=== PATIENT | female | born 1970 | race Caucasian/White ===

== ENCOUNTER 2016-11-30 07:47 | Day surgery (SDC) | payer OTHER, BC ==
[2016-11-28 14:26] VITALS: BMI 18.6
[2016-11-30] MEDS ORDERED: ceFAZolin IV 2 gm in Dextrose 50 ML IVPB ONE (08:27)
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
[2016-11-30] MEDS ORDERED: Bacitracin 50,000 UNIT in Sodium Chloride 0.9% Irrig 1,000 ML IR SCH (08:45)
[2016-11-30 09:02] VITALS: O2SAT 100
[2016-11-30] MEDS ORDERED: Propofol 10 mg/ml Inj (20 ML) ONE (09:14)
[2016-11-30] MEDS ORDERED: Midazolam 2 MG/2 ML VIAL ONE (09:14)
[2016-11-30] MEDS ORDERED: Lactated Ringer's 1,000 ML IV ONE ×2 (09:15→13:00)
[2016-11-30] MEDS ORDERED: Rocuronium 10 mg/ml (5 ml) ONE ×2 (09:15→11:36)
[2016-11-30] MEDS ORDERED: Bupivacaine-Epi 0.5%-1:200,000 PF Inj ONE (10:25)
[2016-11-30] MEDS ORDERED: Neostigmine Methylsulfate 3mg/3ml Syringe IV ONE (12:46)
[2016-11-30] MEDS ORDERED: Oxycodone/Acetaminophen 5/325 mg Tab PO PRN (13:25)
--- NOTE | 2016-11-30 13:29 | PCM.SURG1 ---
Surgeon's Initial Post Op Note - Surgeon's Notes Surgeon: Kassidy Maddox MD [employer] Internship: Chaz galindo PA-C Type of Anesthesia: General Endo Anesthesia Administered By: Dr. Griffin/Mirian MARADIAGA Pre-Operative Diagnosis: left clavicle displaced midshaft fx Operative Findings: synthes implant Post-Operative Diagnosis: same Operation Performed: Left clavicle ORIF Specimen/Specimens Removed: none Estimated Blood Loss: EBL {In ML}: 100 Blood Products Given: N/A Drains Used: No Drains Post-Op Condition: Fair Date of Surgery/Procedure: 11/30/16 Time of Surgery/Procedure: 13:29
[2016-11-30] MEDS: HYDROmorphone 0.5 mg/0.5 ml ISec IVP PRN ×5 (13:30→14:40)
--- NOTE | 2016-11-30 14:37 | RAD ---
PROCEDURE: CHEST RADIOGRAPH, 1 VIEW HISTORY: r/o pneumothorax s/p left clavicle ORIF COMPARISON: 11/28/2016. FINDINGS: LUNGS: No focal airspace opacity. PLEURA: No pneumothorax or pleural fluid seen. CARDIOVASCULAR: Normal. OSSEOUS STRUCTURES: Orthopedic hardware along the left clavicle. VISUALIZED UPPER ABDOMEN: Upper abdomen is suboptimally evaluated. OTHER FINDINGS: None. IMPRESSION: Clear lungs. No pneumothorax.
--- NOTE | 2016-11-30 16:44 | RAD ---
PROCEDURE: Intraoperative Fluoroscopy. HISTORY: Fracture left clavicle FINDINGS: Fluoroscopic assistance was provided for left clavicle fracture repair. Please refer to the operative report from Dr. ISLAS
[2016-11-30 17:38] VITALS: BP 121/67; PULSE 73; RESP 18; TEMP 98
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
== END 2016-11-30 17:00 | disposition home or self-care (01) ==
LOC: C.SDS 07:47 → EDBD 09:00 → C.SDS 17:00
PROVIDERS: ATTEND Student in an Organized Health Care Education/Training Program
DX: S42.022A Displaced fracture of shaft of left clavicle, initial encounter for closed fracture (principal); G56.22 Lesion of ulnar nerve, left upper limb; V49.9XXA Car occupant (driver) (passenger) injured in unspecified traffic accident, initial encounter; S00.12XA Contusion of left eyelid and periocular area, initial encounter
CPT/HCPCS: 23515; 71010; 76000; C1713; J0690; J1170; J2001; J2250; J2405; J2704; J2710; J3010; J7120